=== PATIENT | male | born 1955 | race Caucasian/White ===

== ENCOUNTER 2022-04-20 14:15 | Emergency (ER) | payer MEDICARE, OTHER ==
[2022-04-20] MEDS ORDERED: HYDROCODON-ACE1 EAC4 PO (17:10)
[2022-04-20] MEDS ORDERED: CEPHALEXIN500 MG PO (17:10)
== END 2022-04-20 17:27 | disposition home or self-care (01) ==
LOC: ER1 14:15
DX: L03.115 Cellulitis of right lower limb (principal); I11.9 Hypertensive heart disease without heart failure; E78.5 Hyperlipidemia, unspecified; Z95.5 Presence of coronary angioplasty implant and graft; Z79.02 Long term (current) use of antithrombotics/antiplatelets
CPT/HCPCS: 93971; 99283